=== PATIENT | male | born 2000 ===

== ENCOUNTER → 2021-10-23 | Outpatient (CLI) | payer OTHER ==
--- NOTE | 2021-10-23 15:17 | DIREP ---
PROCEDURE:XRAY KNEE 2 VWS-RT COMPARISON:None. INDICATIONS:Z00.00 Encounter for general adult medical examination without abnormal fin FINDINGS: BONES:Normal. JOINTS:Normal. SOFT TISSUES:Normal. OTHER:No additional findings. CONCLUSION:Normal examination. Dictated by: Walker Barth MD on 10/23/2021 at 03:15 PM
--- NOTE | 2021-10-23 15:18 | DIREP ---
PROCEDURE:XRAY KNEE 2 VWS-LT COMPARISON:None. INDICATIONS:Z00.00 Encounter for general adult medical examination without abnormal fin FINDINGS: BONES:Normal. JOINTS:Normal. SOFT TISSUES:Normal. OTHER:No additional findings. CONCLUSION:Normal examination. Dictated by: Walker Barth MD on 10/23/2021 at 03:15 PM
--- NOTE | 2021-10-23 15:20 | DIREP ---
PROCEDURE:XRAY SPINE THORACIC 3 VWS COMPARISON:None. INDICATIONS:Z00.00 Encounter for general adult medical examination without abnormal fin TECHNIQUE:AP & lateral views of the thoracic spine and a swimmer's view of the cervicothoracic junction are provided. FINDINGS: ALIGNMENT:Normal. VERTEBRAE:Normal. DISK SPACES:Minimal lower thoracic spondylosis. OTHER:Normal. CONCLUSION: 1. Minimal lower thoracic ventral spondylosis. Dictated by: Walker Barth MD on 10/23/2021 at 03:17 PM
--- NOTE | 2021-10-23 15:21 | DIREP ---
PROCEDURE:XRAY SPINE LUMBAR 2-3 VWS COMPARISON:None. INDICATIONS:Z00.00 Encounter for general adult medical examination without abnormal fin TECHNIQUE:AP, lateral, and coned down lateral views of the lumbar spine are provided. FINDINGS: ALIGNMENT:Normal. VERTEBRAE:Normal. DISK SPACES:Normal. SPONDYLOLISTHESIS:None. SACROILIAC JOINTS:Normal. OTHER:Normal. CONCLUSION: 1. Normal examination. Dictated by: Walker Batrh MD on 10/23/2021 at 03:19 PM
== END | disposition home or self-care (01) ==
LOC: RAD 13:05
PROVIDERS: ATTEND Registered Nurse
DX: Z00.00 Encounter for general adult medical examination without abnormal findings (principal)
CPT/HCPCS: 72072; 72100; 73560